=== PATIENT | female | born 1940 | race Caucasian/White ===

== ENCOUNTER → 2020-04-21 | Outpatient (CLI) | payer MEDICARE, OTHER ==
[~2020-04-21] MED LIST: ASCO-96 PO; ASPI-515 PO; CALCIUM + D PO; CHOL10003 PO; FISH OIL PO; ISOS30TA21 PO; LANS30CA60 PO; LISI5TAB7 PO; MULT-516 PO; SIMV40TA20 PO; TYLENOL ARTHRITIS PO; UBID100C10 PO
== END | disposition home or self-care (01) ==
LOC: CVU 13:37
PROVIDERS: ATTEND Internal Medicine Cardiovascular Disease
DX: I65.23 Occlusion and stenosis of bilateral carotid arteries (principal); I10 Essential (primary) hypertension; E78.5 Hyperlipidemia, unspecified; Z87.891 Personal history of nicotine dependence; I25.10 Atherosclerotic heart disease of native coronary artery without angina pectoris
CPT/HCPCS: 93880